=== PATIENT | female | born 1955 | race Caucasian/White ===

== ENCOUNTER 2021-07-28 15:16 | Emergency (ER) | payer MEDICARE, OTHER, SELFPAY ==
[2021-07-28 15:16] VITALS: BP 160/89; PULSE 94; RESP 24; TEMP 36.7; O2SAT 100; BMI 21.6
--- NOTE | 2021-07-28 15:26 | EKG12_ITS ---
Test Reason : CP Blood Pressure : / mmHG Vent. Rate : 084 BPM Atrial Rate : 084 BPM P-R Int : 124 ms QRS Dur : 078 ms QT Int : 362 ms P-R-T Axes : 080 076 067 degrees QTc Int : 427 ms Normal sinus rhythm Voltage criteria for left ventricular hypertrophy Nonspecific ST abnormality Abnormal ECG Confirmed by LONA MATA, LUKE ([id number]), scientific publications editor CLEMENCIA ANDERSEN ([id number]) on 07/30/2021 11:28:38 AM Referred By: KENYA Confirmed By:LUKE ZAMORANO MD
--- NOTE | 2021-07-28 15:27 | EDS_ITS ---
HPI History of Present Illness Chief Complaint: Shortness of Breath Informant: patient and spouse/S.O. Narrative Narrative: 66-year-old female presenting to the emergency department with chest pain shortness of breath. Patient states that she developed the symptoms about 30 to 45 minutes ago. They came on suddenly have been constant. She reports that at the end of October 2020 she had similar symptoms after several days and went to the emergency room. She states the work-up was negative and she subsequently has followed up with cardiology and has had a negative echocardiogram except for a small pericardial effusion. Patient has not had stress test or heart catheterization. She denies any sweating, nausea, or back pain. No DVT PE risk factors. PFSH PFSH Medical History no medical history no medical history Allergy/AdvReac Type Severity Reaction Status Date / Time bee venom protein (honey bee) Allergy Anaphylaxis Verified 07/28/21 15:45 moxifloxacin Allergy Vomiting Verified 07/28/21 15:45 fluticasone AdvReac Other Verified 07/28/21 15:45 levothyroxine AdvReac Chest Verified 07/28/21 15:45 tightness Penicillins AdvReac Hives Verified 07/28/21 15:45 zolpidem [From Ambien] AdvReac Other Verified 07/28/21 15:45 Social History (Updated 07/28/21 @ 15:[address] Uriel Mon, ) household members: spouse current gender identity: female Smoking Status: Never smoker ROS ROS ED Constitutional Constitutional ED: Denies chills or weight loss Eyes Eyes: Denies change in vision or diplopia ENT ENT ED: Denies ear pain, rhinorrhea or sore throat Cardiovascular Cardiovascular: Reports chest pain; Denies orthopnea, palpitations or racing heartbeat Respiratory/Chest Respiratory/Chest: Reports dyspnea; Denies cough or orthopnea Gastrointestinal Gastrointestinal: Denies abdominal pain, diarrhea, nausea or vomiting Genitourinary Genitourinary ED: Denies dysuria, hematuria or urinary frequency Musculoskeletal Musculoskeletal: Denies arthralgias or myalgias Integumentary Denies abscess or rash Neurologic Neurologic: Denies headache(s) or weakness Psychiatric Psychiatric: Denies anxiety, depression, suicidal ideation or suicidal thoughts Endocrine Endocrinology: Denies polydipsia, polyphagia or polyuria Allergic/Immunologic Allergic/Immunologic ED: Denies mouth swelling, tongue swelling or urticaria EXAM Physical Exam Const Vital Signs: 07/28/21 15:16 07/28/21 15:37 07/28/21 17:16 Temperature 98.0 F Temperature Source Temporal Pulse Rate 94 70 Respiratory Rate 24 H 20 H Respiratory Effort Short of Breath Respiratory Depth Normal Respiratory Pattern Hyperpnea Blood Pressure 160/89 H 141/63 H Blood Pressure Mean 112 89 Pulse Ox 100 99 Oxygen Delivery Method Room Air Room Air Room Air Positive well nourished and well developed General Appearance ED: well developed HEENT Reports normocephalic, head/scalp atraumatic, TM's clear and moist mucous membranes Negative for trauma Tympanic Membrane ED: Yes TM's clear Eyes PERRL and EOMs intact bilaterally Neck no lymphadenopathy, supple and no JVD Resp normal respiratory effort and clear to auscultation bilaterally Cardio regular rate, regular rhythm and no murmurs GI normal to inspection, nondistended, normoactive bowel sounds and non-tender Palpation: soft Back/Spine no CVA tenderness and normal ROM Extremity normal to inspection General Extremety ED: Negative for edema General Extremity: Negative for edema Neuro oriented x3 and CN's II-XII intact bilaterally Sensorium / Orientation: alert Motor Exam: strength 5/5 throughout Psych Mood & Affect: anxious; Negative for depressed or tearful Skin no rashes or lesions noted and no wounds MDM MDM MDM Narrative Medical decision making narrative: CBC normal. BMP is normal. Troponin is at 7. D-dimer 0.64. This age age-adjusted is normal. EKG is a normal sinus rhythm. My interpretation of the chest x-ray is no acute process. Repeat troponin is 12. Patient received a dose of Ativan and does feel better. At this point I think the patient can be discharged home instructions to follow-up with her doctors Lab Data Attestation: I reviewed the patient's lab results. Labs: Laboratory Results - last 24 hr 07/28/21 07/28/21 07/28/21 15:34 15:34 15:34 WBC 5.7 RBC 4.36 Hgb 13.1 Hct 40.0 MCV 91.7 MCH 30.0 MCHC 32.8 RDW Std Deviation 40.9 RDW Coeff of Sp 12.1 Plt Count 215 MPV 9.1 Immature Gran % (Auto) 0.400 Neut % (Auto) 57.3 Lymph % (Auto) 31.2 [place] % (Auto) 10.1 H Eos % (Auto) 0.5 Baso % (Auto) 0.5 Absolute Neuts (auto) 3.2 Absolute Lymphs (auto) 1.76 Nucleated RBC % 0 D-Dimer Quant (PE/DVT) 0.64 H* Sodium 140 Potassium 3.9 Chloride 106 Carbon Dioxide 22.0 Anion Gap 12 BUN 23 H Creatinine 0.91 Estim Creat Clear Calc 57.54 Est GFR (MDRD) Af Amer 79 Est GFR (MDRD) Non-Af 65 BUN/Creatinine Ratio 25.3 H Glucose 102 Calcium 9.9 Troponin I High Sens 7 07/28/21 17:18 WBC RBC Hgb Hct MCV MCH MCHC RDW Std Deviation RDW Coeff of Sp Plt Count MPV Immature Gran % (Auto) Neut % (Auto) Lymph % (Auto) [place] % (Auto) Eos % (Auto) Baso % (Auto) Absolute Neuts (auto) Absolute Lymphs (auto) Nucleated RBC % D-Dimer Quant (PE/DVT) Sodium Potassium Chloride Carbon Dioxide Anion Gap BUN Creatinine Estim Creat Clear Calc Est GFR (MDRD) Af Amer Est GFR (MDRD) Non-Af BUN/Creatinine Ratio Glucose Calcium Troponin I High Sens 12 Radiography Diagnostic Testing: Clinical Impression(s) from Imaging Studies Chest X-Ray 07/28/21 15:40 IMPRESSION: Nonacute portable x-ray examination of the chest. Electronically Signed: Wu Osman MD ([place]) at 16:02 EST , Service support , Discharge Plan Triage Chief Complaint: Shortness of Breath ED Provider: Uriel Mon Dx/Rx/DC Orders Clinical Impression: Chest pain, Acute dyspnea Instructions: ED Chest Pain, Uncertain Cause Primary Care Provider: Onel Pizarro Referrals: [facility] Doctor,Out of [NON-STAFF] - Disposition Disposition: Home, Self Care
[2021-07-28 15:37] VITALS: O2SAT 98
--- NOTE | 2021-07-28 15:40 | RAD_ITS ---
STUDY: X-RAY CHEST REASON FOR EXAM: Female, 66 years old. chest pain TECHNIQUE: AP COMPARISON: None. FINDINGS: EKG leads project over the chest. No airspace consolidation. There is no demonstrated pleural abnormality. Normal size heart. Normal mediastinum and marie. Normal visualized pulmonary arteries. There is atherosclerotic tortuosity of the aortic arch and descending thoracic aorta. No acute bony process. There is no demonstrated abnormality of the visualized soft tissue structures of the upper abdomen. RAD/Chest 1 View (Portable) IMPRESSION: Nonacute portable x-ray examination of the chest. Electronically Signed: Wu Osman MD ([place]) at 16:02 EST , Service support ,
[2021-07-28 15:41] LABS: Absolute Lymphocyte Count 1.76 X10^3/uL (0.83-4.51); Absolute Neutrophil Count 3.2 X10^3/uL (2.0-7.7); Basophil# 0.03 X10^3/uL; Basophil% 0.5 % (0-1); Eosinophil# 0.03 X10^3/uL; Eosinophils% 0.5 % (0-5); Hemoglobin 13.1 g/dL (12.0-15.0); Lymphocyte # 1.76 X10^3/ul (0.83-4.51); Lymphocyte % 31.2 % (19-41); Mean Corp Hgb Conc 32.8 g/dL (32-36); Mean Corpuscular Volume 91.7 fL (81-99); Mean Platelet Vol. 9.1 fl (6.2-12.0); Monocyte# 0.57 X10^3/uL; Monocyte% 10.1 % (0-10); NRBC Flagged by Analyzer 0 % (0-5); Neutrophil # 3.24 X10^3/uL (2.7-7.7); Neutrophil % 57.3 % (47-70); Platelet Count 215 K/mm3 (150-450); RBC Distribution Width CV 12.1 % (11.6-14.6); RBC Distribution Width SD 40.9 fl (35.1-43.9); Red Blood Count 4.36 M/mm3 (4.2-5.4); White Blood Count 5.7 K/mm3 (4.4-11.0)
[2021-07-28 16:05] LABS: Anion Gap 12 (5-15); BUN 23 mg/dL (7-18); BUN/Creat Ratio 25.3 RATIO (10-20); Calcium,Total 9.9 mg/dL (8.5-10.1); Chloride 106 mmol/L (98-107); Creatinine, Serum 0.91 mg/dL (0.55-1.02); EST Glomerular Filtration Rate 65 mL/min (>60); Est Glom Filt Rate - Afr Amer 79 mL/min (>60); Estimated Creatinine Clearance 57.54 ml/min; Glucose 102 mg/dL (74-106); Potassium 3.9 mmol/L (3.5-5.1); Sodium Level 140 mmol/L (136-145); Troponin-I HS 7 pg/mL (3.0-54.0)
[2021-07-28 16:12] LABS: D-Dimer Quantitative (DVT/PE) 0.64 FEU/ug/m (0.27-0.49)
[2021-07-28] MEDS: LORazepam 2 MG/ML Syringe 0.5 MG IV (17:14)
[2021-07-28 17:16] VITALS: BP 141/63; PULSE 70; RESP 20; O2SAT 99
[2021-07-28 17:42] LABS: Troponin-I HS 12 pg/mL (3.0-54.0)
[2021-07-28 18:03] VITALS: O2SAT 99
== END 2021-07-28 18:04 | disposition home or self-care (01) ==
PROVIDERS: Emergency Provider Emergency Medicine
DX: R07.9 Chest pain, unspecified (principal); R06.00 Dyspnea, unspecified; R06.02 Shortness of breath
CPT/HCPCS: 71045; 80048; 84484; 85025; 85379; 93005; 96374; 99284; A4216